=== PATIENT | male | born 1945 | race Caucasian/White ===

== ENCOUNTER 2016-11-05 16:35 | Emergency (ER) | payer MEDICARE, OTHER ==
[2016-11-05 16:54] VITALS: BP 143/108
[2016-11-05] MEDS ORDERED: Sodium Chloride 0.9% 10 ML Syringe FLUSH PRN (17:22)
--- NOTE | 2016-11-05 17:34 | EDM.PDOC ---
ED HPI GENERAL MEDICAL PROBLEM - General Chief Complaint: Chest Pain Stated Complaint: CHEST PAIN Time Seen by Provider: 11/05/16 17:11 Source of Information: Reports: Patient History Limitations: Reports: No Limitations - History of Present Illness INITIAL COMMENTS - FREE TEXT/NARRATIVE: Patient is a 71-year-old male with a history of hypertension, hypercholesteremia , BPH, GERD, and smoking. He presents to the ED complaining of right-sided chest discomfort that is described as sharp in nature that radiates into his right arm and back. Pain started yesterday afternoon while taking cucumbers out of the refrigerator. Pain was sudden sharp and intense. Patient became dizzy and proceeded to take 3 full dose adult aspirins. Pain persisted through the night. This morning awoke with the discomfort and proceeded to run errands throughout the whole course of the day. This evening after taking a hot shower sharp pain worsened to the point he almost passed out. Pain does not worsen with pushing on it, moving his arm, or taking a deep breath. In addition with putting his shirt on with coming to the E.D. pain was quite severe. Pain does decrease with taking a deep breath and holding it or taking many small little breaths over a short period of time. He's never had pain as such. There is no history of coronary artery disease. There is no family history of heart disease. Denies any fever/chills, shortness of breath, dizziness, chest pain, nausea/vomiting, abdominal pain, diaphoresis with admission to the ED. Patient has taken 3 adult dose aspirin this morning. Patient takes atorvastatin, vitamin D3, fluticasone, losartan, omeprazole, and baby aspirin daily. Chest Pain Score (Numeric/FACES): 10 - Related Data Allergies Allergy/AdvReac Type Severity Reaction Status Date / Time pain medication AdvReac Vomiting Uncoded 11/05/16 16:49 Home Meds: Home Meds Cholecalciferol (Vitamin D3) [Cholecalciferol] 2,000 unit PO DAILY 11/05/16 [ History] Fluticasone Propionate [Flonase Allergy Relief] 2 spray KARAN DAILY 11/05/16 [ History] Losartan [Cozaar] 25 mg PO DAILY 11/05/16 [History] Omeprazole 40 mg PO DAILY 11/05/16 [History] atorvaSTATin [Lipitor] 40 mg PO BEDTIME 11/05/16 [History] Past Medical History Cardiovascular History: Reports: High Cholesterol, Hypertension Gastrointestinal History: Reports: GERD Social & Family History - Tobacco Use Smoking Status *Q: Current Every Day Smoker Years of Tobacco use: 55 Packs/Tins Daily: 0.2 - Caffeine Use Caffeine Use: Reports: Coffee - Recreational Drug Use Recreational Drug Use: Yes Recreational Drug Type: Reports: Marijuana/Hashish Recreational Drug Use Frequency: Rarely ED ROS GENERAL - Review of Systems Review Of Systems: ROS reveals no pertinent complaints other than HPI. ED EXAM, GENERAL - Physical Exam Exam: See Below Exam Limited By: No Limitations General Appearance: Alert, WD/WN, No Apparent Distress Ears: Hearing Grossly Normal Nose: Normal Inspection Throat/Mouth: Normal Inspection, Normal Oropharynx, Normal Voice, No Airway Compromise Head: Atraumatic, Normocephalic Neck: Normal Inspection, Supple, Non-Tender, Full Range of Motion. No: Lymphadenopathy (L), Lymphadenopathy (R) Respiratory/Chest: No Respiratory Distress, Lungs Clear, Normal Breath Sounds, No Accessory Muscle Use, Chest Non-Tender Cardiovascular: Normal Peripheral Pulses, Regular Rate, Rhythm Peripheral Pulses: 2+: Radial (L), Radial (R) GI/Abdominal: Normal Bowel Sounds, Soft, Non-Tender, No Organomegaly, No Distention Back Exam: Normal Inspection, Full Range of Motion Extremities: Normal Inspection, Normal Range of Motion, Non-Tender, No Pedal Edema, Normal Capillary Refill Neurological: Alert, Oriented, CN II-XII Intact, Normal Cognition, No Motor/ Sensory Deficits Psychiatric: Normal Affect, Normal Mood Skin Exam: Warm, Dry, Intact, Normal Color, No Rash Course - Vital Signs Last Recorded V/S: Last Vital Signs Temp 97.2 F 11/05/16 16:49 Pulse 60 11/05/16 16:49 Resp 16 11/05/16 16:49 BP 143/108 H 11/05/16 16:49 Pulse Ox 96 11/05/16 16:49 - Orders/Labs/Meds Orders: Active Orders 24 hr Category Date Time Status EKG 12 Lead [EKG Documentation Completion] [RC] STAT Care 11/05/16 17:37 Active Peripheral IV Care [RC] . DIRECTED Care 11/05/16 17:22 Active CXR [Chest 1V Frontal] [CR] Stat Exams 11/05/16 17:22 Taken Peripheral IV Insertion Adult [OM.PC] Stat Oth 11/05/16 17:22 Ordered Labs: Laboratory Tests 11/05/16 11/05/16 11/05/16 Range/Units 17:15 17:15 17:15 WBC 6.91 (4.23-9.07) K/mm3 RBC 4.64 (4.63-6.08) M/mm3 Hgb 14.4 (13.7-17.5) gm/L Hct 42.6 (40.1-51.0) % MCV 91.8 (79.0-92.2) fl MCH 31.0 (25.7-32.2) pg MCHC 33.8 (32.2-35.5) g/dl RDW Std Deviation 44.8 H (35.1-43.9) fL Plt Count 241 (163-337) K/mm3 MPV 10.0 (9.4-12.3) fl Neut % (Auto) 66.0 (34.0-67.9) % Lymph % (Auto) 24.0 (21.8-53.1) % [place] % (Auto) 8.8 (5.3-12.2) % Eos % (Auto) 0.7 L (0.8-7.0) Baso % (Auto) 0.4 (0.1-1.2) % Neut # (Auto) 4.55 (1.78-5.38) K/mm3 Lymph # (Auto) 1.66 (1.32-3.57) K/mm3 [place] # (Auto) 0.61 (0.30-0.82) K/mm3 Eos # (Auto) 0.05 (0.04-0.54) K/mm3 Baso # (Auto) 0.03 (0.01-0.08) K/mm3 PT 10.0 (8.0-13.0) SECONDS INR 0.92 APTT (22-36) SECONDS Sodium 142 (136-145) mEq/L Potassium 3.9 (3.5-5.1) mEq/L Chloride 109 H (98-107) mEq/L Carbon Dioxide 25 (21-32) mEq/L Anion Gap 11.9 (5-15) BUN 16 (7-18) mg/dL Creatinine 1.3 (0.7-1.3) mg/dL Est Cr Clr Drug Dosing 57.12 mL/min Estimated GFR (MDRD) 55 (>60) mL/min BUN/Creatinine Ratio 12.3 L (14-18) Glucose 96 (80-115) mg/dL Calcium 8.6 (8.5-10.1) mg/dL Total Bilirubin 0.4 (0.2-1.0) mg/dL AST 15 (15-37) U/L ALT 23 (16-63) U/L Alkaline Phosphatase 70 (46-116) U/L Troponin I < 0.017 (0.00-0.056) ng/mL C-Reactive Protein 0.7 (<1.0) mg/dL Total Protein 6.7 (6.4-8.2) g/dl Albumin 3.4 (3.4-5.0) g/dl Globulin 3.3 gm/dL Albumin/Globulin Ratio 1.0 (1-2) TSH 3rd Generation 1.908 (0.358-3.74) uIU/mL 11/05/16 Range/Units 17:15 WBC (4.23-9.07) K/mm3 RBC (4.63-6.08) M/mm3 Hgb (13.7-17.5) gm/L Hct (40.1-51.0) % MCV (79.0-92.2) fl MCH (25.7-32.2) pg MCHC (32.2-35.5) g/dl RDW Std Deviation (35.1-43.9) fL Plt Count (163-337) K/mm3 MPV (9.4-12.3) fl Neut % (Auto) (34.0-67.9) % Lymph % (Auto) (21.8-53.1) % [place] % (Auto) (5.3-12.2) % Eos % (Auto) (0.8-7.0) Baso % (Auto) (0.1-1.2) % Neut # (Auto) (1.78-5.38) K/mm3 Lymph # (Auto) (1.32-3.57) K/mm3 [place] # (Auto) (0.30-0.82) K/mm3 Eos # (Auto) (0.04-0.54) K/mm3 Baso # (Auto) (0.01-0.08) K/mm3 PT (8.0-13.0) SECONDS INR APTT 29 (22-36) SECONDS Sodium (136-145) mEq/L Potassium (3.5-5.1) mEq/L Chloride (98-107) mEq/L Carbon Dioxide (21-32) mEq/L Anion Gap (5-15) BUN (7-18) mg/dL Creatinine (0.7-1.3) mg/dL Est Cr Clr Drug Dosing mL/min Estimated GFR (MDRD) (>60) mL/min BUN/Creatinine Ratio (14-18) Glucose (80-115) mg/dL Calcium (8.5-10.1) mg/dL Total Bilirubin (0.2-1.0) mg/dL AST (15-37) U/L ALT (16-63) U/L Alkaline Phosphatase (46-116) U/L Troponin I (0.00-0.056) ng/mL C-Reactive Protein (<1.0) mg/dL Total Protein (6.4-8.2) g/dl Albumin (3.4-5.0) g/dl Globulin gm/dL Albumin/Globulin Ratio (1-2) TSH 3rd Generation (0.358-3.74) uIU/mL Meds: Medications Discontinued Medications Generic Name Dose Route Start Last Admin Trade Name Freq PRN Reason Stop Dose Admin Sodium Chloride 10 ml 11/05/16 17:22 11/05/16 17:23 Saline Flush FLUSH 10 ml ASDIRECTED PRN Administration Keep Vein Open - Re-Assessments/Exams Free Text/Narrative Re-Assessment/Exam: I believe current complaint is more associated with musculoskeletal in nature. Due to patient's risk factors and persistence of discomfort elected to rule out cardiac etiology. Patient has no history of DVT/PE and does not have any symptoms suggesting at risk. Labs reviewed: CBC and chem 14 were essentially normal. Coags normal. CRP 0.7, TSH 1.908, troponin less than 0.017. Chest x-ray revealed no acute findings. Reviewed with Dr. Ortiz. Final interpretation is pending. EKG revealed sinus rhythm at a rate of [address] changes. Vital signs have been stable while in the ED. He has no complaints at this time. If related to the heart troponin should have been positive with onset at 1600 hrs and as severe as the patient describes it. Could be related to muscle skeletal and/or nerve. Unclear etiology at this point. I believe it safe safe to discharge patient home at this point with no additional testing. Dr. Ortiz has evaluated the patient as well. He agrees with plan. Will discharge with instructions as documented. Departure - Departure Time of Disposition: 18:21 Disposition: Home, Self-Care 01 Condition: Good Clinical Impression: Atypical chest pain Instructions: Nonspecific Chest Pain Referrals: Miguel Hastings MD [Primary Care Provider] - Forms: ED Department Discharge Additional Instructions: As discussed labs, chest x-ray, and EKG were all negative. If this was related to your heart we should have seen abnormal findings on the EKG and/or lab work. Believe this is musculoskeletal in nature. This may also be associated with a nerve. Unclear at this point. Examination was benign. Will have you take ibuprofen 600 mg every 6 hours and Tylenol 650 mg every 6 hours in alternating fashion for pain. Follow-up with your PCP the end of this week or first part of next week if symptoms persist. Return to the ED for any new or worsening symptoms. Continue taking all your home medications as prescribed. - My Orders Last 24 Hours: My Active Orders 11/05/16 17:22 Peripheral IV Care [RC] . DIRECTED CXR [Chest 1V Frontal] [CR] Stat Peripheral IV Insertion Adult [OM.PC] Stat 11/05/16 17:37 EKG 12 Lead [EKG Documentation Completion] [RC] STAT - Assessment/Plan Last 24 Hours: My Active Orders 11/05/16 17:22 Peripheral IV Care [RC] . DIRECTED CXR [Chest 1V Frontal] [CR] Stat Peripheral IV Insertion Adult [OM.PC] Stat 11/05/16 17:37 EKG 12 Lead [EKG Documentation Completion] [RC] STAT
--- NOTE | 2016-11-06 07:23 | CR ---
Chest: Portable view of the chest was obtained. Comparison: No prior chest x-ray. Heart size and mediastinum are within normal limits. Bony structures are grossly intact. Slight atelectasis is noted within the left lung base. Lungs otherwise are clear. Impression: 1. Incidental findings. Nothing acute is appreciated. Diagnostic code #2
== END 2016-11-05 18:43 | disposition home or self-care (01) ==
LOC: JD.ED 16:35
DX: R07.89 Other chest pain (principal); I10 Essential (primary) hypertension; E78.00 Pure hypercholesterolemia, unspecified; K21.9 Gastro-esophageal reflux disease without esophagitis; F17.210 Nicotine dependence, cigarettes, uncomplicated; Z79.899 Other long term (current) drug therapy; Z88.6 Allergy status to analgesic agent
CPT/HCPCS: 36415; 71010; 80053; 84443; 84484; 85025; 85610; 85730; 86140; 93005; 99285; J7050; 99284

== ENCOUNTER 2017-07-08 18:18 | Emergency (ER) | payer MEDICARE, OTHER ==
[2017-07-08 18:31] VITALS: BP 119/72
--- NOTE | 2017-07-08 18:54 | EDM.PDOC ---
ED HPI GENERAL MEDICAL PROBLEM - General Chief Complaint: Upper Extremity Injury/Pain Stated Complaint: RIGHT ELBOW HAS FLUID Time Seen by Provider: 07/08/17 18:40 Source of Information: Reports: Patient History Limitations: Reports: No Limitations - History of Present Illness INITIAL COMMENTS - FREE TEXT/NARRATIVE: Patient is a 71-year-old male presents ED complaining of right elbow swelling and slight pain. Patient states he was mowing lawn all day. Does not recall injuring the affected extremity. States upon returning home his noted swelling and with admission to the ED has noticed a decrease in swelling at this time. Approx one month ago patient had tenderness pinpoint along the olecranon with question if acute fracture present. At that point there was only minimal swelling and bruising that had dissipated. Again does not recall if and how he injured it. Patient has minimal pain. Able to flex and extend at the elbow with no issues. No sensory motor deficits distally. No previous history of prior injury. He's never had surgery on the elbow. He is on no blood thinners and takes aspirin. - Related Data Allergies Allergy/AdvReac Type Severity Reaction Status Date / Time azithromycin Allergy Diarrhea Verified 07/08/17 18:35 pain medication AdvReac Vomiting Uncoded 11/05/16 16:49 Home Meds: Home Meds Fluticasone Propionate [Flonase Allergy Relief] 2 spray KARAN DAILY 11/05/16 [ History] Losartan [Cozaar] 25 mg PO DAILY 11/05/16 [History] Omeprazole 40 mg PO DAILY 11/05/16 [History] atorvaSTATin [Lipitor] 40 mg PO BEDTIME 11/05/16 [History] Past Medical History Cardiovascular History: Reports: High Cholesterol, Hypertension Gastrointestinal History: Reports: GERD Social & Family History - Caffeine Use Caffeine Use: Reports: Coffee Review of Systems - Review of Systems Review Of Systems: ROS reveals no pertinent complaints other than HPI. ED EXAM, GENERAL - Physical Exam Exam: See Below Exam Limited By: No Limitations General Appearance: Alert, WD/WN, No Apparent Distress Ears: Hearing Grossly Normal Nose: Normal Inspection Throat/Mouth: Normal Voice, No Airway Compromise Neck: Normal Inspection, Supple Respiratory/Chest: No Respiratory Distress, No Accessory Muscle Use Cardiovascular: Normal Peripheral Pulses, Regular Rate, Rhythm Peripheral Pulses: 4+: Radial (R) Extremities: Other (Patient has swelling noted to the right patient has swelling to the posterior aspect of the right elbow. Posterior aspect of the right elbow. No discomfort with palpation. Is able to flex and extend at the elbow with no discomfort. No sensory motor deficits distally. States one month ago had increased sensitivity to this area with some slight swelling. Unknown if there was any injury at that time.) Neurological: Alert, Oriented, CN II-XII Intact, Normal Cognition, No Motor/ Sensory Deficits Psychiatric: Normal Affect, Normal Mood Skin Exam: Warm, Dry, Intact, Normal Color, Ecchymosis (Slight bruising noted to the left ground. No erythema. No open wounds. No increased warmth noted.) Course - Vital Signs Last Recorded V/S: Last Vital Signs Temp 98.0 F 07/08/17 18:30 Pulse 79 07/08/17 18:30 Resp 20 07/08/17 18:30 BP 119/72 07/08/17 18:30 Pulse Ox 94 L 07/08/17 18:30 - Re-Assessments/Exams Free Text/Narrative Re-Assessment/Exam: Patient has swelling noted to the posterior aspect of the right elbow. No discomfort with palpation. Is able to flex and extend at the elbow with no discomfort. No sensory motor deficits distally. States one month ago had increased sensitivity to this area with some slight swelling. Unknown if there was any injury at that time. states on admission to the ED elbow swelling has decreased. Patient was mowing lawn this afternoon. 07/08/17 19:31 Avulsion fracture noted to the olecranon. Final interpretation is pending. Reviewed with Dr. Ortiz. Departure - Departure Time of Disposition: 19:33 Disposition: Home, Self-Care 01 Condition: Good Clinical Impression: Elbow fracture, right Qualifiers: Encounter type: initial encounter Fracture type: closed Qualified Code(s): S42.401A - Unspecified fracture of lower end of right humerus, initial encounter for closed fracture - Discharge Information Instructions: Olecranon Fracture Referrals: Trina Looney DO [Primary Care Provider] - Forms: ED Department Discharge Additional Instructions: Apply ice to the affected area four times daily, 30 minutes in duration, do not apply directly on the skin. Take ibuprofen and tylenol in alternating fashion for pain. Refrain from any activities that cause worsening pain. Wear regina wrap to reduce and swelling. Suggest wearing a elbow pad for protection. Followup with orthopedic surgeon and or PCP in 10 days for reevaluation. Return to the E.D. if you develop any new or worsening symptoms.
--- NOTE | 2017-07-09 09:21 | CR ---
Right elbow: Four views of the right elbow were obtained. Comparison: No prior elbow exam. Soft tissue swelling is noted posteriorly. Small olecranon spur is noted as well as adjacent soft tissue calcifications off the olecranon spur. Well-corticated bony density is noted off the medial elbow and lateral elbow compatible with tendinous calcification. No acute fracture or other bony abnormality is seen. Impression: 1. Soft tissue calcifications believed to be within tendons from prior calcific tendinitis. 2. Soft tissue swelling is noted posteriorly. 3. No acute bony abnormality is seen. Diagnostic code #2
== END 2017-07-08 19:45 | disposition home or self-care (01) ==
LOC: SUPCPDRO 18:18 → JD.ED 18:18
DX: S42.401A Unspecified fracture of lower end of right humerus, initial encounter for closed fracture (principal); E78.00 Pure hypercholesterolemia, unspecified; I10 Essential (primary) hypertension; Z88.1 Allergy status to other antibiotic agents; Z79.899 Other long term (current) drug therapy; X58.XXXA Exposure to other specified factors, initial encounter
CPT/HCPCS: 73080-26-RT; 73080-RT; 99283

== ENCOUNTER 2017-11-06 08:41 | Day surgery (SDC) | payer MEDICARE, OTHER ==
[~2017-11-06 08:41] MED LIST: Cefuroxime 10 MG/ML SYRINGE EYELF SCH; Lidocaine 1% PF 2 ML SDV INJECT SCH; Pilocarpine 4% Ophth Soln 15 ML Bot EYELF SCH
[2017-11-06] MEDS: Polymyxin B/Trimethoprim 10 ML Bottle EYELF SCH ×3 (09:25→11:33)
[2017-11-06] MEDS: Brimonidine 0.2% Ophth Soln 5 ML Bottle EYELF SCH ×3 (09:31→11:33)
[2017-11-06] MEDS: Phenylephrine 2.5% Ophth Soln 2 ML Bot EYELF SCH ×5 (09:39→11:08)
[2017-11-06] MEDS: Tropicamide 1% Ophth Soln 15 ML Bottle EYELF SCH ×4 (09:46→10:35)
--- NOTE | 2017-11-06 09:57 | PCM.PREANE ---
Preanesthetic Assessment - Anesthesia/Transfusion/Family Hx Anesthesia History: Prior Anesthesia Without Reaction Family History of Anesthesia Reaction: No Transfusion History: No Prior Transfusion(s) - Review of Systems General: Other (s/p cold from last week) Pulmonary: No Symptoms, Other (smoker) Cardiovascular: Other (HTN, high cholesterol) Gastrointestinal: Other (GERD on medications) Neurological: No Symptoms Other: Reports: None - Physical Assessment NPO Status Date: 11/05/17 NPO Status Time: 19:00 Pulse: 62 O2 Sat by Pulse Oximetry: 95 Respiratory Rate: 16 Blood Pressure: 134/71 Vital Signs: Last Vital Signs Temp 36.6 C 11/06/17 09:20 Pulse 62 11/06/17 09:20 Resp 16 11/06/17 09:20 BP 134/71 11/06/17 09:20 Pulse Ox 95 11/06/17 09:20 Height: 1.78 m Weight: 96.615 kg ASA Class: 2 Mental Status: Alert & Oriented x3 Airway Class: Mallampati = 2 Dentition: Reports: Normal Dentition Thyro-Mental Finger Breadths: 3 Mouth Opening Finger Breadths: 3 ROM/Head Extension: Full Lungs: Clear to Auscultation, Normal Respiratory Effort Cardiovascular: Regular Rate, Regular Rhythm - Allergies Allergies/Adverse Reactions: Allergies Allergy/AdvReac Type Severity Reaction Status Date / Time No Known Allergies Allergy Verified 11/05/17 12:22 - Blood Blood Available: No Product(s) Available: None - Anesthesia Plan Pre-Op Medication Ordered: None - Acknowledgements Anesthesia Type Planned: MAC Pt an Appropriate Candidate for the Planned Anesthesia: Yes Alternatives and Risks of Anesthesia Discussed w Pt/Guardian: Yes Pt/Guardian Understands and Agrees with Anesthesia Plan: Yes PreAnesthesia Questionnaire Cardiovascular History: Reports: High Cholesterol, Hypertension Gastrointestinal History: Reports: GERD - HOME MEDS Home Medications: Home Meds Fluticasone Propionate [Flonase Allergy Relief] 2 spray AKRAN DAILY 11/05/16 [ History] Losartan [Cozaar] 25 mg PO DAILY 11/05/16 [History] Omeprazole 40 mg PO DAILY 11/05/16 [History] atorvaSTATin [Lipitor] 40 mg PO BEDTIME 11/05/16 [History] - CURRENT (IN HOUSE) MEDS Current Meds: Current Medications Brimonidine Tartrate (Alphagan 0.2% Oph Soln) 0 ml EYELF ASDIRECTED YANELY Stop: 11/06/17 18:00 Last Admin: 11/06/17 09:31 Dose: 1 drop Cefuroxime Sodium (Zinacef) 0 mg EYELF ASDIRECTED YANELY Stop: 11/06/17 18:00 Lidocaine HCl (Xylocaine-Mpf 1%) 1 ml INJECT ASDIRECTED YANELY Stop: 11/06/17 18:00 Phenylephrine HCl (Wali-Synephrine 2.5% Ophth Soln) 0 ml EYELF ASDIRECTED YANELY Stop: 11/06/17 18:00 Last Admin: 11/06/17 09:51 Dose: 1 drop Pilocarpine HCl (Pilocar 4% Ophth Soln) 0 ml EYELF ASDIRECTED YANELY Stop: 11/06/17 18:00 Polymyxin/Trimethoprim Sulfate (Polytrim Ophth Soln) 0 ml EYELF ASDIRECTED YANELY Stop: 11/06/17 18:00 Last Admin: 11/06/17 09:25 Dose: 1 drop Tetracaine HCl (Tetracaine 0.5% Steri-Unit Deb) 0 ml EYELF ASDIRECTED YANELY Stop: 11/06/17 18:00 Tropicamide (Mydriacyl 1% Ophth Soln) 0 ml EYELF ASDIRECTED YANELY Stop: 11/06/17 18:00 Last Admin: 11/06/17 09:46 Dose: 1 drop
[2017-11-06] MEDS: Tetracaine HCl/PF 0.5% 4 ML Bottle EYELF SCH ×2 (10:54→11:20)
--- NOTE | 2017-11-06 11:37 | PCM48HPAN ---
Post Anesthesia Note - EVALUATION WITHIN 48HRS OF ANESTHETIC Vital Signs in Normal Range: Yes Patient Participated in Evaluation: Yes Respiratory Function Stable: Yes Airway Patent: Yes Cardiovascular Function Stable: Yes Hydration Status Stable: Yes Pain Control Satisfactory: Yes Nausea and Vomiting Control Satisfactory: Yes Mental Status Recovered: Yes Pulse Rate: 50 SaO2: 98 Resp Rate: 16 Temperature: 36 C Blood Pressure: 130/90
[2017-11-06 12:07] VITALS: BP 131/85
== END 2017-11-06 11:45 | disposition home or self-care (01) ==
LOC: JD.SDS 08:41
PROVIDERS: ATTEND Ophthalmology
DX: H25.813 Combined forms of age-related cataract, bilateral (principal); H35.30 Unspecified macular degeneration; H02.834 Dermatochalasis of left upper eyelid; H02.831 Dermatochalasis of right upper eyelid; H16.223 Keratoconjunctivitis sicca, not specified as Sjogren's, bilateral; H16.103 Unspecified superficial keratitis, bilateral; E78.00 Pure hypercholesterolemia, unspecified; F17.200 Nicotine dependence, unspecified, uncomplicated; I10 Essential (primary) hypertension; K21.9 Gastro-esophageal reflux disease without esophagitis; Z79.899 Other long term (current) drug therapy; Z83.518 Family history of other specified eye disorder
CPT/HCPCS: 66984; A9270; C1780; J0697; J2001

== ENCOUNTER 2018-10-14 17:12 | Emergency (ER) | payer MEDICARE, OTHER ==
[2018-10-14 17:51] VITALS: BP 123/83
[2018-10-14] MEDS ORDERED: Acetaminophen/HYDROcodone 325-5 MG Tab PO ONE (20:08)
[2018-10-14] MEDS ORDERED: Ondansetron 4 MG Tab.DIS PO ONE (20:08)
--- NOTE | 2018-10-14 20:27 | EDM.PDOC ---
ED HPI GENERAL MEDICAL PROBLEM - General Chief Complaint: Lower Extremity Injury/Pain Stated Complaint: LEFT FOOT INJURY Time Seen by Provider: 10/14/18 19:45 Source of Information: Reports: Patient History Limitations: Reports: No Limitations - History of Present Illness INITIAL COMMENTS - FREE TEXT/NARRATIVE: 73-year-old male presents for evaluation and treatment of injury of left lower leg. Patient reports that he stepped in a hole;describes stepping in dorsiflexion. He reports feeling a pop and experiencing immediate pain extending from his ankle up his posterior calf and towards his knee. He is able to walk but states this is painful. No numbness or tingling to the leg. He tried taking some aspirin and 2 shots of bourbon which helped slightly. Pain is a 9 out of 10 currently. states he has injured this lower leg in the past and [place] and [place] told it was a heel spur. Onset: Sudden Location: Reports: Lower Extremity, Left Left Ankle Pain Score (Numeric/FACES): 9 - Related Data Allergies Allergy/AdvReac Type Severity Reaction Status Date / Time Penicillins AdvReac Diarrhea Verified 10/14/18 17:51 Home Meds: Home Meds Fluticasone Propionate [Flonase Allergy Relief] 2 spray KARAN DAILY 11/05/16 [ History] Losartan [Cozaar] 25 mg PO DAILY 11/05/16 [History] Omeprazole 40 mg PO DAILY 11/05/16 [History] atorvaSTATin [Lipitor] 40 mg PO BEDTIME 11/05/16 [History] Acetaminophen/HYDROcodone [[place] 325-5 MG] 1 - 2 tab PO Q6H PRN #20 tablet 12/03 [Rx] Acetaminophen/HYDROcodone [[place] 325-5 MG] 1 tab PO Q6H PRN #12 tablet 10/14/18 [Rx] Ondansetron [Zofran ODT] 4 mg PO Q6H PRN #12 tab.dis 10/14/18 [Rx] Past Medical History HEENT History: Reports: Cataract, Hard of Hearing, Impaired Vision, Other (See Below) Other HEENT History: glasses, hearing aids Cardiovascular History: Reports: Blood Clots/VTE/DVT, High Cholesterol, Hypertension Respiratory History: Reports: None Gastrointestinal History: Reports: GERD Genitourinary History: Reports: Other (See Below) Other Genitourinary History: TURP INGOT CASTER History: Reports: None Musculoskeletal History: Reports: None Psychiatric History: Reports: Addiction Endocrine/Metabolic History: Reports: None Hematologic History: Reports: Bleeding Disorder Immunologic History: Reports: None Oncologic (Cancer) History: Reports: None Dermatologic History: Reports: None - Past Surgical History Head Surgeries/Procedures: Reports: None HEENT Surgical History: Reports: None, Cataract Surgery Cardiovascular Surgical History: Reports: None Respiratory Surgical History: Reports: None GI Surgical History: Reports: Colonoscopy Male Surgical History: Reports: TURP-Transurethral Resection of Prostate Endocrine Surgical History: Reports: None Neurological Surgical History: Reports: Other (See Below) Other Neurological Surgeries/Procedures: back surgery Musculoskeletal Surgical History: Reports: None Oncologic Surgical History: Reports: None Dermatological Surgical History: Reports: None Social & Family History - Tobacco Use Smoking Status *Q: Never Smoker - Caffeine Use Caffeine Use: Reports: Coffee Review of Systems - Review of Systems Review Of Systems: See Below Musculoskeletal: Reports: Leg Pain (left posterior lower leg from ankle to the posterior knee) Neurological: Denies: Numbness, Tingling ED EXAM, GENERAL - Physical Exam Exam: See Below Exam Limited By: No Limitations General Appearance: Alert, WD/WN, No Apparent Distress Respiratory/Chest: No Respiratory Distress Cardiovascular: Normal Peripheral Pulses, Regular Rate, Rhythm Peripheral Pulses: 2+: Posterior Tibial (L), Posterior Tibial (R), Dorsalis Pedis (L), Dorsalis Pedis (R) Extremities: Other (left calf is cooler in temperature compared to the right; slight swelling but no brusing noticed; achilles appears to be intact, negative squeeze test) Neurological: Alert, Oriented, Normal Cognition Psychiatric: Normal Affect, Normal Mood Skin Exam: Warm, Dry, Normal Color Course - Vital Signs Last Recorded V/S: Last Vital Signs Temp 98.0 F 10/14/18 17:45 Pulse 80 10/14/18 17:45 Resp 20 10/14/18 17:45 BP 123/83 10/14/18 17:45 Pulse Ox 93 L 10/14/18 17:45 - Orders/Labs/Meds Orders: Active Orders 24 hr Category Date Time Status Durable Medical Equipment for Discharge [DME for Oth 10/14/18 20:19 Ordered Discharge] [COMM] Stat Meds: Medications Discontinued Medications Generic Name Dose Route Start Last Admin Trade Name Freq PRN Reason Stop Dose Admin Hydrocodone Bitart/Acetaminophen 1 tab 10/14/18 20:08 10/14/18 20:13 [place] 325-5 Mg PO 10/14/18 20:09 1 tab ONETIME ONE Administration Ondansetron HCl 4 mg 10/14/18 20:08 10/14/18 20:13 Zofran Odt PO 10/14/18 20:09 4 mg ONETIME ONE Administration - Radiology Interpretation Free Text/Narrative:: Left ankle: 4 views of the left ankle were obtained. Comparison: No prior ankle exam. Plantar spur is noted. Spur noted also at the attachment of the Achilles tendon to the calcaneus. Bony density is noted off the medial malleolus which is well-corticated and is felt to represent an old ununited avulsion fracture. Ankle mortise is symmetric. No acute fracture or dislocation is seen. Soft tissue swelling is noted. Impression: 1. Calcaneal spurs and evidence of old avulsion injury off the medial malleolus. 2. Soft tissue swelling. 3. No acute bony abnormality is identified on right ankle exam. - Re-Assessments/Exams Free Text/Narrative Re-Assessment/Exam: 10/14/18 20:13 Reviewed ankle xray, no acute fracture. Clinically patient was a gastrocnemius tear. Spoke with Dr. Faulkner, ortho television script writer. Recommend crutches and a walking boot. Will place outpatient MRI order and have him follow-up with Dr. Faulkner in a week for definitive care. informed patient expresses understanding of plan. Discharge instructions as documented. Departure - Departure Time of Disposition: 20:20 Disposition: Home, Self-Care 01 Condition: Fair Clinical Impression: Gastrocnemius muscle tear - Discharge Information *PRESCRIPTION DRUG MONITORING PROGRAM REVIEWED*: No *COPY OF PRESCRIPTION DRUG MONITORING REPORT IN PATIENT DOUG: No Prescriptions: Acetaminophen/HYDROcodone [[place] 325-5 MG] 1 tab PO Q6H PRN #12 tablet PRN Reason: Pain Ondansetron [Zofran ODT] 4 mg PO Q6H PRN #12 tab.dis PRN Reason: Nausea Instructions: Medial Head Gastrocnemius Tear Referrals: Helga De La Garza MD [Primary Care Provider] - Akhsat Faulkner MD [Physician] - Forms: ED Department Discharge Additional Instructions: take the [place] 1/2-1 tab every 6 hours as needed for pain. [place] as habit- forming, take as few of these as needed control your pain. Take with food present nausea and vomiting. Do not drive or operate machinery within 10 hours of taking [place]. Zofran 1 tab sublingual every 6 hours as needed for nausea. Use the crutches and walking boot at all time. May remove to shower. An Outpatient order has been placed for you to have an MRI of your left lower leg. These results will be sent to Dr. Faulkner. Radiology should call to schedule this with you tomorrow. If you do not hear from them call [phone] and ask for radiology to schedule this. Call tomorrow to schedule follow-up appointment with Dr. Roblero in about 1 week. Call [phone] to schedule with him. Please return to the ER if your symptoms change or worsen. - My Orders Last 24 Hours: My Active Orders 10/14/18 20:19 Durable Medical Equipment for Discharge [DME for Discharge] [COMM] Stat - Assessment/Plan Last 24 Hours: My Active Orders 10/14/18 20:19 Durable Medical Equipment for Discharge [DME for Discharge] [COMM] Stat
--- NOTE | 2018-10-15 08:23 | CR ---
Left ankle: Four views of the left ankle were obtained. Comparison: No prior ankle exam. Plantar spur is noted. Spur noted also at the attachment of the Achilles tendon to the calcaneus. Bony density is noted off the medial malleolus which is well-corticated and is felt to represent an old ununited avulsion fracture. Ankle mortise is symmetric. No acute fracture or dislocation is seen. Soft tissue swelling is noted. Impression: 1. Calcaneal spurs and evidence of old avulsion injury off the medial malleolus. 2. Soft tissue swelling. 3. No acute bony abnormality is identified on right ankle exam. Diagnostic code #2
== END 2018-10-14 20:39 | disposition home or self-care (01) ==
LOC: JD.ED 17:12
DX: S96.912A Strain of unspecified muscle and tendon at ankle and foot level, left foot, initial encounter (principal); I10 Essential (primary) hypertension; K21.9 Gastro-esophageal reflux disease without esophagitis; E78.00 Pure hypercholesterolemia, unspecified; Z79.899 Other long term (current) drug therapy; Z88.0 Allergy status to penicillin; W22.8XXA Striking against or struck by other objects, initial encounter
CPT/HCPCS: 73610; 99283; A9270

== ENCOUNTER 2021-10-27 21:51 | Emergency (ER) | payer MEDICARE, OTHER ==
[2021-10-28 03:12] VITALS: BP 143/82; PULSE 60
== END 2021-10-27 23:45 | disposition home or self-care (01) ==
LOC: JD.ED 21:51
DX: S63.502A Unspecified sprain of left wrist, initial encounter (principal); S00.83XA Contusion of other part of head, initial encounter; S80.212A Abrasion, left knee, initial encounter; I10 Essential (primary) hypertension; E78.00 Pure hypercholesterolemia, unspecified; K21.9 Gastro-esophageal reflux disease without esophagitis; F17.210 Nicotine dependence, cigarettes, uncomplicated; Z88.0 Allergy status to penicillin; Z79.899 Other long term (current) drug therapy; W01.0XXA Fall on same level from slipping, tripping and stumbling without subsequent striking against object, initial encounter
CPT/HCPCS: 70450; 70450-26; 70486; 70486-26; 72125; 72125-26; 99284

== ENCOUNTER 2023-02-06 21:05 | Emergency (ER) | payer MEDICARE, OTHER ==
[2023-02-06 21:20] VITALS: BP 192/94; PULSE 68
== END 2023-02-06 21:59 | disposition home or self-care (01) ==
LOC: JD.ED 21:05
DX: K11.21 Acute sialoadenitis (principal); I10 Essential (primary) hypertension; E78.00 Pure hypercholesterolemia, unspecified; K21.9 Gastro-esophageal reflux disease without esophagitis; Z86.16 Personal history of COVID-19; Z79.899 Other long term (current) drug therapy; Z88.0 Allergy status to penicillin
CPT/HCPCS: 99283